=== PATIENT | female | born 1955 | race Caucasian/White ===

== ENCOUNTER → 2017-01-28 | Outpatient (CLI) | payer OTHER ==
--- NOTE | ~2017-01-28 | ENPV ---
Vascular Lower Extremities DVT Study Procedure Demographics Patient Name NNEKA LYNN Date of Study 01/28/2017 Patient Number [id number] Gender Female Date of 1955 Age 61 Visit Number [id number] Height Accession Number [id number] Weight Room Number BSA BMI Referring Conchita Kapoor MD Physician Parveen Landrum Physician Physician Ordering Physician Parveen Canales MD [employer] Maria Luz Moore T, [facility] Conclusions Summary No evidence of deep vein thrombosis or superficial thrombophlebitis in the left lower extremity . Procedure Type of Study: Veins:Lower Extremities DVT Study, Lower Extremity Left, Venous Duplex Lower Extremity Bilateral. Indications for Study:Pain. Appropriate Use Criteria:6 Patient Status:Routine. Study Location:Vascular Lab. Technical Quality:Good visualization. - Preliminary reported to:Dr Saini at 1999. Velocities are measured in cm/s ; Diameters are measured in cm Right Lower Extremities DVT Study Measurements Right 2D and Doppler Measurements + + + + +------+------+ + !Location !Visualized!Compressibility!Thrombosis!Signal!Reflux!Reflux ! ! ! ! ! ! ! !(sec) ! + + + + +------+------+ + !GSV Thigh !Yes !Yes !None !Phasic! ! ! + + + + +------+------+ + !Common !Yes !Yes !None !Phasic! ! ! !Femoral ! ! ! ! ! ! ! + + + + +------+------+ + Left Lower Extremities DVT Study Measurements Left 2D and Doppler Measurements + + + + +------+------+ + !Location !Visualized!Compressibility!Thrombosis!Signal!Reflux!Reflux ! ! ! ! ! ! ! !(sec) ! + + + + +------+------+ + !GSV Thigh !Yes !Yes !None !Phasic! ! ! + + + + +------+------+ + !Common !Yes !Yes !None !Phasic! ! ! !Femoral ! ! ! ! ! ! ! + + + + +------+------+ + !Prox !Yes !Yes !None !Phasic! ! ! !Femoral ! ! ! ! ! ! ! + + + + +------+------+ + !Mid Femoral!Yes !Yes !None !Phasic! ! ! + + + + +------+------+ + !Dist !Yes !Yes !None !Phasic! ! ! !Femoral ! ! ! ! ! ! ! + + + + +------+------+ + !Popliteal !Yes !Yes !None !Phasic! ! ! + + + + +------+------+ + !PTV !Yes !Yes !None !Phasic! ! ! + + + + +------+------+ + !Peroneal !Yes !Yes !None !Phasic! ! ! + + + + +------+------+ + Signature dtt: Yg Rojas dtd: 01/28/17 1934 Physician Self Edit
== END | disposition disaster alternative care site (69) ==
LOC: GRAD 19:35
DX: Z03.89 Encounter for observation for other suspected diseases and conditions ruled out (principal)